=== PATIENT | female | born 1970 | race Hispanic/Latino ===

== ENCOUNTER 2024-11-19 01:01 | Emergency (ER) | payer BC ==
[~2024-11-19] VITALS: Ht 162.6 cm; Wt 88.5 kg
[~2024-11-19 01:01] MED LIST: CEFDINIR300 MG PO; DIPHENHYDRAMINE25 M2 PO; IBUPROFEN200 MG PO; LEXAPRO10 MG PO; PANTOPRAZOLE SO40 MG PO; TYLENOL325 MG PO
[2024-11-19 01:07] VITALS: PULSE 77; RESP 18; TEMP 97.8
[2024-11-19] MEDS ORDERED: CEPHALEXIN500 MG PO (01:44)
[2024-11-19] MEDS: TRAMADOL HCL 50 MG TAB PO ONE (01:45)
[2024-11-19 01:55] VITALS: BP 122/77; PULSE 77; RESP 18; TEMP 97.8; O2SAT 96
== END 2024-11-19 01:55 | disposition home or self-care (01) ==
LOC: FSED 01:30
DX: S90.211A Contusion of right great toe with damage to nail, initial encounter (principal); W20.8XXA Other cause of strike by thrown, projected or falling object, initial encounter; Y92.89 Other specified places as the place of occurrence of the external cause; E11.9 Type 2 diabetes mellitus without complications; K21.9 Gastro-esophageal reflux disease without esophagitis; F41.9 Anxiety disorder, unspecified; Z98.84 Bariatric surgery status
CPT/HCPCS: 99283